=== PATIENT | male | born 1995 | race Caucasian/White ===

== ENCOUNTER 2017-06-22 12:30 | Emergency (ER) | payer SELFPAY ==
--- NOTE | 2017-06-22 12:32 | ER Report ---
History and Physical Time Seen By MD: 12:31 HPI/ROS CHIEF COMPLAINT: Right shoulder problem HISTORY OF PRESENT ILLNESS: Patient is a 22-year-old male who is right-hand dominant who presents to the emergency department after a fall skiing today. Patient has pain and inability to move at the right shoulder. He has sensation intact to the hand. He has sensation intact over the deltoid. He is no prior history of fracture or dislocation. REVIEW OF SYSTEMS: Respiratory: No cough, no dyspnea. Cardiovascular: No chest pain, no palpitations. Gastrointestinal: No vomiting, no abdominal pain. Musculoskeletal: No back pain. Right shoulder pain Allergies: Coded Allergies: No Known Drug Allergies (Unverified , 06/22/17) Home Meds Active Scripts Hydrocodone Bit/Acetaminophen (HYDROCODON-ACETAMINOPHEN 5-325) 1 Each Tablet, 1 EACH PO Q4-6H Y for PAIN, #12 TAB 0 Refills TAKE ONE TABLET BY MOUTH EVERY 4-6 HOURS NEEDED FOR PAIN Prov:NASREEN CUEVAS MD 06/22/17 Constitutional Vital Sign - Last 24 Hours 06/22/17 06/22/17 06/22/17 06/22/17 12:30 12:40 12:50 12:55 Temp 98.9 Pulse 60 73 65 73 Resp 16 B/P (MAP) 137/89 137/89 (105) Pulse Ox 96 96 92 93 O2 Delivery Room Air 06/22/17 06/22/17 06/22/17 06/22/17 12:58 13:00 13:05 13:10 Pulse 57 61 61 Resp 9 12 14 B/P (MAP) 124/80 (95) 126/86 (99) 122/64 (83) 118/74 (89) Pulse Ox 93 94 93 06/22/17 06/22/17 06/22/17 06/22/17 13:15 13:20 13:24 13:25 Pulse 57 64 70 Resp 15 19 11 B/P (MAP) 125/73 (90) 120/80 (93) 125/64 (84) Pulse Ox 95 94 97 06/22/17 06/22/17 06/22/17 06/22/17 13:30 13:35 13:40 13:45 Pulse 62 64 66 57 Resp 11 15 B/P (MAP) 147/82 (103) 125/74 (91) 130/92 (105) Pulse Ox 97 95 97 96 06/22/17 06/22/17 06/22/17 06/22/17 13:50 13:55 14:00 14:05 Pulse 60 71 79 71 Resp 10 14 Pulse Ox 95 95 93 90 Physical Exam General Appearance: The patient is alert, has no immediate need for airway protection and no current signs of toxicity. Respiratory: Chest is non tender, lungs are clear to auscultation. Cardiac: regular rate and rhythm Gastrointestinal: Abdomen is soft and non tender, no masses, bowel sounds normal. Musculoskeletal: Neck: Neck is supple and non tender. Right shoulder appears deformed with a sulcus sign. Patient has normal sensation to the hand as well as sensation over the deltoid. Skin: No rashes or lesions. [ ] Medical Decision Making ED Course/Re-evaluation Clinical Indication for ER IV: IV Access ED Course 06/22/2017 1:16:11 pm an attempt was made to do shoulder reduction without procedural sedation using the Parks technique. Patient tolerated procedure but we are unable to reduce the shoulder. Plan will be procedural sedation and shoulder reduction. Procedure: Procedural sedation. A pre-sedation evaluation was completed on the patient at 1306. Patient is an appropriate candidate for procedural sedation. The risks of the sedation were discussed with the patient. A time out was completed. The patient was sedated with 30mg of ketamine and 30mg of propofol. The patient was monitored with continuous pulse oximetry, ETCO2 and compliance monitor. There were no complications and no significant hypoxemia. I remained at the bedside for the sedation. The total time I spent in the procedural sedation was 15 minutes. Procedure: Dislocation reduction. The right shoulder was reduced in the usual fashion without complications. Post reduction the patient's neurovascular exam is normal. Post reduction x-ray demonstrates reduction of the joint to the anatomic position. The procedure was performed by myself. Decision to Disposition Date: Jun 22, 2017 Decision to Disposition Time: 14:35 Depart Departure Latest Vital Signs Vital Signs Date Time Temp Pulse Resp B/P (MAP) Pulse Ox O2 Delivery O2 Flow Rate FiO2 06/22/17 14:05 71 14 90 06/22/17 13:40 130/92 (105) 06/22/17 12:30 98.9 Room Air Impression: Primary Impression: Shoulder dislocation Condition: Improved Disposition: HOME OR SELF-CARE New Scripts Hydrocodone Bit/Acetaminophen (HYDROCODON-ACETAMINOPHEN 5-325) 1 Each Tablet 1 EACH PO Q4-6H Y for PAIN, #12 TAB 0 Refills TAKE ONE TABLET BY MOUTH EVERY 4-6 HOURS NEEDED FOR PAIN Prov: NASREEN CUEVAS MD 06/22/17 Patient Instructions: Moderate Sedation (DC), Shoulder Dislocation (GEN), Shoulder Dislocation Exercises (GEN) Additional Instructions: You should schedule a follow-up appointment with orthopedics in the next 1-2 weeks for reevaluation of your right shoulder dislocation. Wear your sling for the next 1-2 days; then start shoulder exercises. Problem Qualifiers Primary Impression: Shoulder dislocation Encounter type: initial encounter Laterality: right Qualified Codes: S43.004A - Unspecified dislocation of right shoulder joint, initial encounter NASREEN CUEVAS MD Jun 22, 2017 12:32
[2017-06-22] MEDS ORDERED: fentaNYL CITR 100 MCG/2 ML AMP IVP ONE (12:35)
[2017-06-22] MEDS ORDERED: LORazepam 2 MG/ML VIAL IVP ONE (12:35)
[2017-06-22] MEDS ORDERED: fentaNYL CITR 100 MCG/2 ML AMP ONE (12:42)
[2017-06-22] MEDS ORDERED: LORazepam 2 MG/ML VIAL ONE (12:42)
[2017-06-22] MEDS ORDERED: KETAMINE HCL 500 MG/5 ML VIAL IVP ONE (13:00)
[2017-06-22] MEDS ORDERED: PROPOFOL EMUL 10MG/ML 20 ML VL IV ONE (13:00)
[2017-06-22] MEDS ORDERED: NS(*) 0.9% 1000 ML BAG 1,000 ML IV ONE (13:15)
[2017-06-22] MEDS ORDERED: ONDANSETRON 4 MG/2 ML VIAL IVP ONE (13:20)
[2017-06-22] MEDS ORDERED: LOR5/325 PO (13:35)
--- NOTE | 2017-06-22 13:47 | RADIOLOGY IMAGING REPORT ---
FACILITY: [facility] PATIENT NAME: Shamar Dave : 1995 MR: [id number] V: [id number] EXAM DATE: ORDERING PHYSICIAN: NASREEN CUEAVS TECHNOLOGIST: [place] [facility] [place] Patient: Shamar Dave : 1995 Visit/Account:[id number] Date of Sevice: 06/22/2017 SHOULDER MIN 2 VIEWS RIGHT Indication: Fall Comparison: Unavailable Findings: Complete anterior dislocation of the humeral head in relation to glenoid with no definite fracture id entified on these images. Views of right ribs are unremarkable. IMPRESSION: 1. Anterior dislocation right glenohumeral joint Report Dictated By: Angus Galvez MD at 06/22/2017 1:42 PM Report E-Signed By: Angus Galvez MD at 06/22/2017 1:43 PM [id number]
[2017-06-22 14:39] VITALS: BP 123/65
--- NOTE | 2017-06-22 15:25 | RADIOLOGY IMAGING REPORT ---
[place] [facility] [place]IENT NAME: Shamar Dave : 1995 MR: [id number] V: [id number] EXAM DATE: ORDERING PHYSICIAN: NASREEN CUEVAS TECHNOLOGIST: Location: [facility] - [place] Patient: Shamar Dave : 1995 Visit/Account:[id number] Date of Sevice: 06/22/2017 EXAMINATION: Right shoulder, 2 views 06/22/2017 1:32 PM HISTORY: post reduction COMPARISON: Prereduction imaging today FINDINGS: Glenohumeral dislocation appears to be anatomically reduced. Likely Hill-Sachs impaction i nto the superolateral aspect of the humeral head there is questionable lucency through the cortex bel ow this raising the possibility of a small tuberosity fracture. AC joint measures about 1 cm. IMPRESSION: 1. Interval reduction of the right glenohumeral dislocation. Suspect impaction injury to the humeral head and there also is a possible small nondisplaced tuberosity fracture. 2. Mildly widened AC joint. Report Dictated By: Joao Cordova MD at 06/22/2017 3:15 PM Report E-Signed By: Joao Cordova MD at 06/22/2017 3:20 PM [id number]
== END 2017-06-22 14:38 | disposition home or self-care (01) ==
LOC: ER 12:31
DX: S43.004A Unspecified dislocation of right shoulder joint, initial encounter (principal); W18.30XA Fall on same level, unspecified, initial encounter; Y93.23 Activity, snow (alpine) (downhill) skiing, snowboarding, sledding, tobogganing and snow tubing
CPT/HCPCS: 23650; 73030; 96361; 96374; 96375; 99152; 99284; A4565; J2060; J2405; J2704; J3010; J7030